=== PATIENT | male | born 1950 | race Caucasian/White ===

== ENCOUNTER 2019-10-29 22:02 | Emergency (ER) | payer MEDICARE ==
[2019-10-29] MEDS ORDERED: NS 0.9% 1000 ML** 1,000 ML IV ONE (22:27)
--- NOTE | 2019-10-29 22:37 | ED ---
Abdominal Pain/Male - HPI Summary HPI Summary: 69-year-old male with a significant past medical history of ulcerative colitis, kidney stones, pulmonary embolism (on warfarin) presented to this emergency Department today complaining of 4 out of 10 cramping right lower quadrant pain which began acutely at approximately 1900 this date while at rest. Patient states at the time of onset his pain was 10/10. Patient states that he has no changes in bowel movements and no blood per rectum. Patient denies fevers, nausea, vomiting, diarrhea. Patient states he is well-controlled in regards to his ulcerative colitis and has not had a flare in years. Patient states this does not feel like his ulcerative colitis or kidney stone. Patient denies testicular pain or pain with urination. Patient endorses anorexia. Patient is otherwise well and denies fever, chest pain, shortness of breath, pain with urination, nausea, vomiting, diarrhea. - History of Current Complaint Chief Complaint: EDAbdPain Stated Complaint: RT LOWER ABD PAIN PER Hx Obtained From: Patient Onset/Duration: Sudden Onset Timing: Constant Severity Initially: Severe Severity Currently: Mild Pain Intensity: 3 Pain Scale Used: 0-10 Numeric Location: Discrete At: RLQ Radiates: No Character: Cramping Associated Signs And Symptoms: Negative: Fever, Nausea, Vomiting, Diarrhea - Allergies/Home Medications Allergies/Adverse Reactions: Allergies Allergy/AdvReac Type Severity Reaction Status Date / Time No Known Allergies Allergy Verified 10/29/19 22:10 Home Medications: Home Medications Warfarin TAB(*) [Coumadin(*)] 7.5 mg PO SUMOWEFRSA 07/28/12 [History Confirmed 10/29/19] Loperamide CAP* [Imodium CAP*] 2 mg PO DAILY PRN 01/26/14 [History Confirmed ] Mesalamine (NF) [Apriso (NF)] 1.5 gm PO DAILY 03/23/16 [History Confirmed ] Warfarin TAB(*) [Coumadin TAB(*)] 5 mg PO TUTH 03/23/16 [History Confirmed 10/28] Sildenafil Citrate [Viagra] 200 mg PO DAILY PRN 10/29/19 [History Confirmed ] Vitamin E CAP* 400 unit PO DAILY 10/29/19 [History Confirmed 10/29/19] Ondansetron ODT TAB* [Zofran 4 MG Odt TAB*] 4 mg PO Q6H PRN #15 tab.odt [Rx] oxyCODONE TAB* [Roxycodone TAB 5 mg*] 5 mg PO Q6H PRN #15 tab MDD 4 10/30/19 [Rx ] PMH/Surg Hx/FS Hx/Imm Hx Endocrine/Hematology History: Denies: Hx Diabetes Cardiovascular History: Denies: Hx Congestive Heart Failure, Hx Hypertension Respiratory History: Reports: Hx Pulmonary Embolism - 10/2010-ON COUMADIN FOR, Other Respiratory Problems/Disorders - HX OF PULMONARY EMBOLISM GI History: Reports: Other GI Disorders - ULCERATIVE COLITIS History: Reports: Other Problems/Disorders - HEMATURIA Denies: Hx Renal Disease Musculoskeletal History: Reports: Hx Tendonitis - ELBOWS, Other Musculoskeletal History - bilateral knee surgery Sensory History: Reports: Hx Contacts or Glasses - WILL WEAR GLASSES Denies: Hx Hearing Aid - SOME HIGH FREQUENCY HEARING LOSS Opthamlomology History: Reports: Hx Contacts or Glasses - WILL WEAR GLASSES Psychiatric History: Reports: Hx Depression - NO MEDICATION AT THIS TIME - Surgical History Surgery Procedure, Year, and Place: BILATERAL KNEE SX FOR MENISCAL TEARS, T/A, Hx Anesthesia Reactions: No Infectious Disease History: Yes Infectious Disease History: Denies: Traveled Outside the [place] in Last 30 Days - Family History Known Family History: Positive: Cardiac Disease - CHF, Diabetes - Adult onset - Social History Alcohol Use: Weekly Alcohol Amount: 4-5 beers/week Substance Use Type: Reports: None Smoking Status (MU): Never Smoked Tobacco Review of Systems Constitutional: Negative Eyes: Negative ENT: Negative - clean and Cardiovascular: Negative Respiratory: Negative Positive: Abdominal Pain. Negative: Vomiting, Diarrhea, Nausea Genitourinary: Negative Musculoskeletal: Negative Skin: Negative Neurological/Mental Status: Negative Psychological: Normal All Other Systems Reviewed And Are Negative: Yes Physical Exam - Summary Physical Exam Summary: Patient was in no acute distress. Inspection of the abdomen revealed no ecchymosis or masses. Auscultation revealed normoactive bowel sounds. Patient had pain with palpation in the right lower quadrant. Positive McBurney's, psoas. Negative obturator, Ortiz's sign. No rebound tenderness, guarding or rigidity was noted. No peritoneal signs. Negative jar tenderness sign. No CVA tenderness is noted. Triage Information Reviewed: Yes Vital Signs On Initial Exam: Initial Vitals Temp Pulse Resp BP Pulse Ox 97.8 F 60 16 160/88 98 10/29/19 22:05 10/29/19 22:05 10/29/19 22:05 10/29/19 22:05 10/29/19 22:05 Vital Signs Reviewed: Yes Appearance: Positive: Well-Appearing, No Pain Distress, Well-Nourished Skin: Positive: Warm, Skin Color Reflects Adequate Perfusion Eyes: Positive: EOMI, MAGDA ENT: Positive: Hearing grossly normal Respiratory/Lung Sounds: Positive: Clear to Auscultation, Breath Sounds Present Cardiovascular: Positive: RRR, S1, S2 Abdomen Description: Positive: Soft, McBurney's Point Tenderness. Negative: Nontender, CVA Tenderness (R), CVA Tenderness (L), Distended, Guarding, Peritoneal Signs, Pulsatile Mass Bowel Sounds: Positive: Present Musculoskeletal: Positive: Strength/ROM Intact Neurological: Positive: Sensory/Motor Intact, Alert, Oriented to Person Place, Time, Normal Gait, Facial Symmetry, Speech Normal Psychiatric: Positive: Normal, Affect/Mood Appropriate AVPU Assessment: Alert Procedures - Sedation Patient Received Moderate/Deep Sedation with Procedure: No Diagnostics - Vital Signs Vital Signs Temp Pulse Resp BP Pulse Ox 10/29/19 22:05 97.8 F 60 16 160/88 98 - Laboratory Result Diagrams: 10/29/19 22:50 10/29/19 22:50 Lab Statement: Any lab studies that have been ordered have been reviewed, and results considered in the medical decision making process. Abdominal Pain Male Course/Dx - Course Course Of Treatment: Patient was evaluated in the emergency department today for abdominal pain. Vitals noted and stable. Physical exam raise suspicion for possible appendicitis v. kidney stone. Laboratory studies were done which showed Labs returned showing no leukocytosis with a WBC 6.4, CRP 5, lipase non suggestive for pancreatitis. No evidence of anemia. Lactic acid 1.6, non- suggestive for bowel ischemia. There is no evidence of significant electrolyte disturbance. Urinalysis shows no evidence of UTI however there is 3+ blood. CT scan shows minimally obstructing 8 mm calculus proximal right third ureter. 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 Patient does not appear toxic or to be suffering from pyelonephritis or any other infection secondary to obstructing stone. Patients pain is able to be controlled with oral pain medications. Patient discharged outpatient follow-up with urology. Patient will be given prescription for oxycodone, Zofran. - Diagnoses Differential Diagnosis/HQI/PQRI: Appendicitis, Diverticulitis, Gall Bladder Disease, Ischemic Bowel, Pancreatitis, Peptic Ulcer Disease, Renal Colic, Testicular Torsion, Ureteral Stone Provider Diagnoses: Abdominal pain - Critical Care Time Critical Care Statement: Critical care time is provided exclusive of any time spent performing procedures. Discharge ED - Sign-Out/Discharge Documenting (check all that apply): Patient Departure - Discharge Plan Condition: Stable Disposition: HOME Prescriptions: Ondansetron ODT TAB* [Zofran 4 MG Odt TAB*] 4 mg PO Q6H PRN #15 tab.odt PRN Reason: Nausea oxyCODONE TAB* [Roxycodone TAB 5 mg*] 5 mg PO Q6H PRN #15 tab MDD 4 PRN Reason: Pain - Severe Patient Education Materials: Kidney Stones (ED) Referrals: Blayne Ho MD [Medical Doctor] - 2 Days Additional Instructions: Please take Tylenol 650 mg every 6 hours as needed for pain. Please take oxycodone every 6 hours as needed for pain which is unable to be controlled with Tylenol. Please take Zofran every 6 hours as needed for nausea. Please follow up with urology in 1-2 days. Please return to this emergency department immediately should you develop any new or worsening symptoms such as increased pain, intractable vomiting, fever. - Billing Disposition and Condition Condition: STABLE Disposition: Home
[2019-10-29 23:02] LABS: ABS Basophils 0.1 10^3/ul (0-0.2); ABS Eosinophils 0.1 10^3/ul (0-0.6); ABS Lymphocytes 1.2 10^3/ul (1.0-4.8); ABS Monocytes 0.5 10^3/ul (0-0.8); ABS Neutrophils 4.5 10^3/ul (1.5-7.7); Eosinophil % 2.1 %; Hematocrit 44 % (42-52); Hemoglobin 15.3 g/dL (14.0-18.0); Lymphocyte % 18.8 %; Mean Corpuscular HGB Conc 35 g/dL (31-36); Mean Corpuscular Hemoglobin 33 pg (27-31); Mean Corpuscular Volume 93 fL (80-94); Mean Platelet Volume 7.5 fL (7.4-10.4); Nucleated Red Blood Cells % 0.1; Platelet Count 166 10^3/uL (150-450); Red Blood Count 4.71 10^6 /uL (4.18-5.48); Red Cell Distribution Width 14 % (10-15); White Blood Count 6.4 10^3/uL (3.5-10.8)
[2019-10-29 23:09] LABS: Urine Appearance Cloudy; Urine Bilirubin Negative (Negative); Urine Blood 3+ (Negative); Urine Color Yellow; Urine Glucose Negative (Negative); Urine Ketones Negative (Negative); Urine Nitrite Negative (Negative); Urine Protein Negative (Negative); Urine Specific Gravity 1.018 (1.010-1.030); Urine Urobilinogen Negative (Negative)
[2019-10-29 23:11] LABS: Urine Bacteria Absent (Absent); Urine Red Blood Cell 3+(>10/hpf) (Absent); Urine White Blood Cell Absent (Absent)
[2019-10-29 23:22] LABS: Albumin 4.4 g/dL (3.2-5.2); Albumin/Globulin Ratio 1.6 (1-3); BUN/Creatinine Ratio 25.3 (8-20); C Reactive Protein 5.14 mg/L (<8.01); Calcium 9.3 mg/dL (8.6-10.3); EGFR Non-African American 96.7 (>60); Globulin 2.8 g/dL (2-4); Total Bilirubin 0.8 mg/dL (0.2-1.0); Total Protein 7.2 g/dL (6.4-8.9)
[2019-10-29] MEDS ORDERED: Iohexol 300* (CONTRAST) 10 ML SDV IV ONE (23:26)
[2019-10-29] MEDS ORDERED: Ondansetron INJ* 2 MG/ML VIAL IV ONE (23:47)
[2019-10-29] MEDS ORDERED: Morphine 4 MG/ML VIAL (1 ml) 4 MG/ML VIAL IV ONE (23:47)
[2019-10-30 00:39] LABS: INR 2.05 (0.82-1.09)
[2019-10-30] MEDS ORDERED: oxyCODONE TAB* 5 MG TAB PO ONE (01:11)
[2019-10-30] MEDS ORDERED: Ondansetron ODT TAB* 4 MG SL ONE (01:11)
[2019-10-30 01:30] VITALS: BP 144/67
== END 2019-10-30 01:25 | disposition home or self-care (01) ==
LOC: ED 22:02
DX: R10.31 Right lower quadrant pain (principal); K51.90 Ulcerative colitis, unspecified, without complications; F32.9 Major depressive disorder, single episode, unspecified; Z87.442 Personal history of urinary calculi; Z79.01 Long term (current) use of anticoagulants; Z86.711 Personal history of pulmonary embolism; Z79.899 Other long term (current) drug therapy
CPT/HCPCS: 36415; 74177; 80053; 81003; 81015; 83605; 83690; 85025; 85610; 86140; 96360; 99283; A9270-GY; J2270; J2405; Q9967